=== PATIENT | male | born 1985 | race African-American/Black ===

== ENCOUNTER 2018-06-11 23:20 | Emergency (ER) | payer SELFPAY | END 2018-06-11 23:59 | disposition home or self-care (01) | LOC: ERS 23:20 | DX: S30.811A Abrasion of abdominal wall, initial encounter (principal); B35.6 Tinea cruris; X58.XXXA Exposure to other specified factors, initial encounter | CPT/HCPCS: 99282 ==

== ENCOUNTER 2018-09-01 14:04 | Emergency (ER) | payer SELFPAY ==
[2018-09-01] MEDS ORDERED: HYDROcodone/Acetaminophen 5/325 mg Tablet ONE (15:07)
== END 2018-09-01 15:10 | disposition home or self-care (01) ==
LOC: ERS 14:04
DX: K04.7 Periapical abscess without sinus (principal); K03.81 Cracked tooth; F17.210 Nicotine dependence, cigarettes, uncomplicated
CPT/HCPCS: 99282

== ENCOUNTER 2019-04-28 14:40 | Emergency (ER) | payer SELFPAY ==
--- NOTE | 2019-04-28 15:27 | RAD ---
PA AND LATERAL CHEST: HISTORY: Cough. FINDINGS: The cardiomediastinum is normal. The lungs are expanded and clear. The bony thorax is normal. IMPRESSION: Normal examination. POS: [facility]
== END 2019-04-28 16:32 | disposition home or self-care (01) ==
LOC: ERS 14:40
DX: M94.0 Chondrocostal junction syndrome [Tietze] (principal); R05 Cough; F17.210 Nicotine dependence, cigarettes, uncomplicated
CPT/HCPCS: 71046; 93005

== ENCOUNTER 2019-07-21 14:38 | Emergency (ER) | payer SELFPAY | END 2019-07-21 15:32 | disposition home or self-care (01) | LOC: ERS 14:38 | DX: K04.7 Periapical abscess without sinus (principal); K03.81 Cracked tooth; F17.210 Nicotine dependence, cigarettes, uncomplicated | CPT/HCPCS: 99406 ==

== ENCOUNTER 2021-04-30 08:42 | Emergency (ER) | payer SELFPAY ==
[2021-04-30] MEDS ORDERED: Acetaminophen 500 MG TAB ONE (09:51)
== END 2021-04-30 10:05 | disposition home or self-care (01) ==
LOC: ERS 08:42
DX: J06.9 Acute upper respiratory infection, unspecified (principal); R11.2 Nausea with vomiting, unspecified; R53.81 Other malaise
CPT/HCPCS: 87804; 99283

== ENCOUNTER 2021-12-24 19:57 | Emergency (ER) | payer SELFPAY | END 2021-12-24 22:15 | disposition home or self-care (01) | LOC: ERS 19:57 | DX: S63.501A Unspecified sprain of right wrist, initial encounter (principal); S50.11XA Contusion of right forearm, initial encounter; F17.210 Nicotine dependence, cigarettes, uncomplicated; W22.8XXA Striking against or struck by other objects, initial encounter ==

== ENCOUNTER 2022-02-05 16:50 | Emergency (ER) | payer SELFPAY ==
[2022-02-05] MEDS ORDERED: Lidocaine 4% Cream 5 GM TUBE w/ Tegaderm ONE (17:05)
[2022-02-05] MEDS ORDERED: Boostrix 0.5 ML (Tdap) VIAL (>/=7 yrs of age) ONE (17:30)
== END 2022-02-05 18:04 | disposition home or self-care (01) ==
LOC: ERS 16:50
DX: L03.011 Cellulitis of right finger (principal); Z23 Encounter for immunization; F17.210 Nicotine dependence, cigarettes, uncomplicated
CPT/HCPCS: 10160; 90471; 90715

== ENCOUNTER 2022-06-06 09:07 | Emergency (ER) | payer SELFPAY | END 2022-06-06 13:19 | disposition home or self-care (01) | LOC: ERS 09:07 | DX: R05.9 Cough, unspecified (principal); M54.50 Low back pain, unspecified; F17.210 Nicotine dependence, cigarettes, uncomplicated | CPT/HCPCS: 71046 ==

== ENCOUNTER 2022-07-16 08:18 | Emergency (ER) | payer SELFPAY | END 2022-07-16 08:59 | disposition home or self-care (01) | LOC: ERS 08:18 | DX: M54.50 Low back pain, unspecified (principal); F17.210 Nicotine dependence, cigarettes, uncomplicated | CPT/HCPCS: 99283 ==

== ENCOUNTER 2022-11-01 07:34 | Emergency (ER) | payer SELFPAY | END 2022-11-01 08:00 | disposition home or self-care (01) | LOC: ERS 07:34 | DX: S30.861A Insect bite (nonvenomous) of abdominal wall, initial encounter (principal); W57.XXXA Bitten or stung by nonvenomous insect and other nonvenomous arthropods, initial encounter | CPT/HCPCS: 99282 ==